=== PATIENT | female | born 1970 | race Caucasian/White ===

== ENCOUNTER 2019-06-03 13:16 | Outpatient (CLI) | payer OTHER ==
[~2019-06-03 13:16] MED LIST: SYNTHROID50 MCG; SYNTHROID75 MCG
== END 2019-06-03 13:51 | disposition home or self-care (01) ==
LOC: NUCLEAR 13:16
DX: M81.0 Age-related osteoporosis without current pathological fracture (principal)

== ENCOUNTER 2020-10-18 08:07 | Outpatient (CLI) | payer OTHER | END 2020-10-18 08:24 | disposition home or self-care (01) | LOC: RAD 08:07 | DX: M25.562 Pain in left knee (principal) ==

== ENCOUNTER 2021-12-21 10:56 | Outpatient (CLI) | payer OTHER | END 2021-12-21 11:06 | disposition home or self-care (01) | LOC: RAD 10:56 | PROVIDERS: ATTEND Emergency Medicine | DX: M75.111 Incomplete rotator cuff tear or rupture of right shoulder, not specified as traumatic (principal) ==